=== PATIENT | female | born 1945 | race Caucasian/White ===

== ENCOUNTER 2017-10-22 06:42 | Emergency (ER) | payer MEDICARE, BC ==
[2017-10-22 06:55] VITALS: BP 180/86
--- NOTE | 2017-10-22 07:37 | EDM.PDOC ---
ED HPI GENERAL MEDICAL PROBLEM - General Chief Complaint: Bite:Animal, Insect Stated Complaint: TICK BITE Time Seen by Provider: 10/22/17 07:33 Source of Information: Reports: Patient History Limitations: Reports: No Limitations - History of Present Illness INITIAL COMMENTS - FREE TEXT/NARRATIVE: pt had a tick on the left side of her abdoman. Onset: Other (pt found the tick today but it was very imbedded. ) Duration: Hour(s): Location: Reports: Abdomen Associated Symptoms: Reports: No Other Symptoms - Related Data Allergies Allergy/AdvReac Type Severity Reaction Status Date / Time Latex, Natural Rubber Allergy Rash Verified 10/22/17 06:56 neoprene Allergy Rash Uncoded 10/22/17 06:56 Home Meds: Home Meds Furosemide [Lasix] 20 mg PO ASDIRECTED PRN 01/12/13 [History] Lovastatin 20 mg PO BEDTIME 01/12/13 [History] Omeprazole 20 mg PO DAILY 01/12/13 [History] Ondansetron [Zofran ODT] 4 mg PO Q8HR PRN 06/13/14 [History] Ascorbic Acid [Vitamin C] 500 mg PO DAILY 07/31/15 [History] Cholecalciferol (Vitamin D3) [Vitamin D3] 1,000 unit PO DAILY 06/17/16 [History] Past Medical History HEENT History: Reports: Cataract, Impaired Vision Cardiovascular History: Reports: High Cholesterol, Hypertension Respiratory History: Reports: Pneumonia, Recurrent Gastrointestinal History: Reports: Chronic Constipation, Colon Polyp, Gastritis , GERD, Hiatal Hernia, PUD, Other (See Below) Other Gastrointestinal History: barretts esophagus Genitourinary History: Reports: Acute Renal Failure, Renal Disease, UTI, Recurrent Musculoskeletal History: Reports: Arthritis, Other (See Below) Other Musculoskeletal History: burscitis-bilateral hip Endocrine/Metabolic History: Reports: Obesity/BMI 30+, Osteoporosis Hematologic History: Reports: Anemia, Folic Acid, Iron Deficiency - Infectious Disease History Infectious Disease History: Reports: Chicken Pox, Measles Other Infectious Disease History: anaplasmosis - Past Surgical History HEENT Surgical History: Reports: Oral Surgery GI Surgical History: Reports: Colonoscopy, EGD, Polypectomy, Other (See Below) Female Surgical History: Reports: Breast Biopsy Endocrine Surgical History: Reports: None Oncologic Surgical History: Reports: Biopsy of Breast Social & Family History - Family History Cardiac: Reports: Hypertension Respiratory: Reports: Other (See Below) Other Respiratory Family Hisory: pneumonia OBGYN: Reports: Musculoskeletal: Reports: Back pain, Chronic, Osteoarthritis, Osteoporosis Endocrine/Metabolic: Reports: Hypothyroidism, Multinodular Thyroid Hematologic: Reports: Anemia - Tobacco Use Smoking Status *Q: Unknown Ever Smoked - Caffeine Use Caffeine Use: Reports: None ED ROS GENERAL - Review of Systems Review Of Systems: See Below Constitutional: Reports: No Symptoms HEENT: Reports: No Symptoms Respiratory: Reports: No Symptoms Cardiovascular: Reports: No Symptoms Endocrine: Reports: No Symptoms GI/Abdominal: Reports: No Symptoms : Reports: No Symptoms Musculoskeletal: Reports: No Symptoms Skin: Reports: Other ( tick bite) ED EXAM, ANIMAL BITE - Physical Exam Exam: See Below Text/Narrative:: Pt had a tick bite on the left side of the abdoman. Exam Limited By: No Limitations General Appearance: Alert, Mild Distress Ears: Normal TMs Nose: Normal Inspection Throat/Mouth: Normal Inspection Head: Atraumatic Neck: Normal Inspection Respiratory/Chest: No Respiratory Distress Cardiovascular: Regular Rate, Rhythm GI/Abdominal: Other ( there is a tick bite on the left side of the abdoman. There is one leg left in and this was pulled out. 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
== END 2017-10-22 07:49 | disposition home or self-care (01) ==
LOC: JP.ED 06:42
DX: S30.861A Insect bite (nonvenomous) of abdominal wall, initial encounter (principal); S80.862A Insect bite (nonvenomous), left lower leg, initial encounter; I10 Essential (primary) hypertension; E78.00 Pure hypercholesterolemia, unspecified; Z79.899 Other long term (current) drug therapy; Z91.040 Latex allergy status; Z88.8 Allergy status to other drugs, medicaments and biological substances; W57.XXXA Bitten or stung by nonvenomous insect and other nonvenomous arthropods, initial encounter
CPT/HCPCS: 99282

== ENCOUNTER 2018-08-23 06:47 | Day surgery (SDC) | payer MEDICARE, BC ==
[2018-08-23] MEDS ORDERED: Propofol 200 MG/20 ML SDV ONE (07:02)
[2018-08-23] MEDS ORDERED: fentaNYL 100 MCG/2 ML SDV ONE (07:02)
[2018-08-23] MEDS ORDERED: Midazolam 1 MG/ML 2 ML SDV ONE (07:02)
[2018-08-23] MEDS ORDERED: Dextrose 5%-Lactated Ringers 1,000 ML IV SCH (07:30)
[2018-08-23 09:15] VITALS: BP 163/84
--- NOTE | 2018-08-29 13:55 | OR ---
DATE OF PROCEDURE: 08/23/2018 PREOPERATIVE DIAGNOSIS: History of Mckeon esophagus. POSTOPERATIVE DIAGNOSIS: History of Mckeon esophagus with minimal inflammation at esophagogastric junction. OPERATIVE PROCEDURE: Esophagogastroduodenoscopy with biopsies of esophagogastric junction for surveillance of Mckeon esophagus. ANESTHESIA: IV sedation. INDICATIONS FOR PROCEDURE: This is a 73-year-old presenting for followup endoscopy for surveillance of Mckeon esophagus. Presently, she is on omeprazole and has good symptom control. Plan is to proceed with an upper GI endoscopy with biopsies of esophagogastric junction and other sites as indicated. Potential risks including bleeding and perforation were discussed, and the patient wishes to proceed. DETAILS OF PROCEDURE: The patient was taken to the operating room and placed in a left lateral decubitus position. IV sedation was administered after which the upper GI endoscope was passed orally through the length of esophagus and into the stomach with retroflexion view of the fundus and thereafter through the pyloric channel and into the proximal duodenum. Findings included normal hypopharynx, larynx, and upper esophageal sphincter as well as esophageal body. At the EG junction, there was some upward extension of the gastroesophageal junction mucosal line and thin peninsular type configurations. There was minimal inflammation present in this area; however, no plaquing, stricturing, or other signs of neoplasia. The remainder of the stomach and duodenum were unremarkable. At this point, biopsies were obtained from the esophagogastric junction, sent for histologic evaluation. Minimal bleeding from the biopsy sites was seen, and the procedure was then concluded. The patient was taken to the recovery room in satisfactory condition. At this point, we will continue the present medical management, and followup plan is repeat endoscopy in 2 years unless a trend towards increased dysplasia is noted on today's biopsies. James Pink MD /[id number]
== END 2018-08-23 09:15 | disposition home or self-care (01) ==
LOC: JP.SDS 06:47
PROVIDERS: ATTEND Surgery
DX: K22.70 Barrett's esophagus without dysplasia (principal); K21.0 Gastro-esophageal reflux disease with esophagitis; E78.00 Pure hypercholesterolemia, unspecified; N18.9 Chronic kidney disease, unspecified; Z79.899 Other long term (current) drug therapy
CPT/HCPCS: 88305; J2250; J2704; J3010; J7042

== ENCOUNTER 2019-05-31 13:09 | Emergency (ER) | payer MEDICARE, BC ==
[2019-05-31] MEDS ORDERED: Sodium Chloride 0.9% 10 ML Syringe FLUSH PRN (13:19)
[2019-05-31] MEDS ORDERED: Ondansetron 4 MG/2 ML SDV IVPUSH ONE (13:20)
[2019-05-31] MEDS ORDERED: HYDROmorphone 0.5 MG/0.5 ML Syringe IVPUSH ONE (13:20)
--- NOTE | 2019-05-31 13:23 | EDM.PDOC ---
ED HPI GENERAL MEDICAL PROBLEM - General Chief Complaint: Upper Extremity Injury/Pain Stated Complaint: FELL, INJURED LEFT ARM/SHOULDER Time Seen by Provider: 05/31/19 13:22 Source of Information: Reports: Patient History Limitations: Reports: No Limitations - History of Present Illness INITIAL COMMENTS - FREE TEXT/NARRATIVE: pt arrived with pain in the left shoulder. The shoulder is definitely deformed. Pt was working on a treadmill and fell and landed onthe shoulder. pt is having severe pain in the shoulder. Onset: Today, Sudden, Other (pt fell. ) Duration: Hour(s): Location: Reports: Upper Extremity, Left Associated Symptoms: Reports: No Other Symptoms Left Shoulder Pain Score (Numeric/FACES): 10 - Related Data Allergies Allergy/AdvReac Type Severity Reaction Status Date / Time Latex, Natural Rubber Allergy Rash Verified 05/31/19 13:39 neoprene Allergy Rash Uncoded 05/31/19 13:39 Home Meds: Home Meds Furosemide [Lasix] 20 mg PO DAILY 01/12/13 [History] Lovastatin 20 mg PO BEDTIME 01/12/13 [History] Omeprazole 20 mg PO DAILY 01/12/13 [History] Ondansetron [Zofran ODT] 4 mg PO Q8HR PRN 06/13/14 [History] Ascorbic Acid [Vitamin C] 500 mg PO DAILY 07/31/15 [History] Cholecalciferol (Vitamin D3) [Vitamin D3] 2,000 unit PO DAILY 06/17/16 [History] Acetaminophen [Tylenol Extra Strength] 1,000 mg PO BID 05/31/19 [History] Ferrous Sulfate [Iron] 1 tab PO DAILY 05/31/19 [History] Past Medical History HEENT History: Reports: Cataract, Impaired Vision Cardiovascular History: Reports: High Cholesterol, Hypertension Respiratory History: Reports: Pneumonia, Recurrent Gastrointestinal History: Reports: Chronic Constipation, Colon Polyp, Gastritis , GERD, Hiatal Hernia, PUD, Other (See Below) Other Gastrointestinal History: barretts esophagus Genitourinary History: Reports: Acute Renal Failure, Renal Disease, UTI, Recurrent TUGBOAT MATE History: Reports: None Musculoskeletal History: Reports: Arthritis, Other (See Below) Other Musculoskeletal History: burscitis-bilateral hip Neurological History: Reports: None Psychiatric History: Reports: None Endocrine/Metabolic History: Reports: Obesity/BMI 30+, Osteoporosis Hematologic History: Reports: Anemia, Folic Acid, Iron Deficiency Immunologic History: Reports: None Oncologic (Cancer) History: Reports: None Dermatologic History: Reports: None - Infectious Disease History Infectious Disease History: Reports: Chicken Pox, Measles, Mumps Other Infectious Disease History: anaplasmosis - Past Surgical History Head Surgeries/Procedures: Reports: None Dermatological Surgical History: Reports: None Social & Family History - Family History Family Medical History: Noncontributory HEENT: Reports: None Cardiac: Reports: Hypertension Respiratory: Reports: Other (See Below) Other Respiratory Family Hisory: pneumonia OBGYN: Reports: Musculoskeletal: Reports: Back pain, Chronic, Osteoarthritis, Osteoporosis Endocrine/Metabolic: Reports: Hypothyroidism, Multinodular Thyroid Hematologic: Reports: Anemia - Caffeine Use Caffeine Use: Reports: None Review of Systems - Review of Systems Review Of Systems: See Below Constitutional: Reports: No Symptoms Eyes: Reports: No Symptoms Ears: Reports: No Symptoms Nose: Reports: No Symptoms Mouth/Throat: Reports: No Symptoms Respiratory: Reports: No Symptoms Cardiovascular: Reports: No Symptoms GI/Abdominal: Reports: No Symptoms Genitourinary: Reports: No Symptoms Musculoskeletal: Reports: Other (joint pain in the left shoulder. Shoulder is defintely deformed) ED EXAM, GENERAL - Physical Exam Exam: See Below Free Text/Narrative:: pt arrived with marked pain in the left shoulder. Her shoulder is deformed. She was walking on the treadmill and she lost control and she fell. Exam Limited By: No Limitations General Appearance: Alert, Anxious Ears: Normal TMs Nose: Normal Inspection Throat/Mouth: Normal Inspection Head: Atraumatic Neck: Normal Inspection Respiratory/Chest: No Respiratory Distress Cardiovascular: Regular Rate, Rhythm Extremities: Other (left shoulder is deformed. It is very painful at this time. ) Neurological: Alert, Oriented, Normal Cognition Psychiatric: Normal Affect Course - Vital Signs Last Recorded V/S: Last Vital Signs Temp 35.4 C 05/31/19 13:43 Pulse 75 05/31/19 13:43 Resp 20 05/31/19 13:43 BP 129/74 05/31/19 13:43 Pulse Ox 96 05/31/19 13:43 - Orders/Labs/Meds Meds: Medications Discontinued Medications Generic Name Dose Route Start Last Admin Trade Name Freq PRN Reason Stop Dose Admin Hydromorphone HCl 0.5 mg 05/31/19 13:20 05/31/19 13:33 Dilaudid IVPUSH 05/31/19 13:21 0.5 mg ONETIME ONE Administration Ondansetron HCl 4 mg 05/31/19 13:20 05/31/19 13:36 Zofran IVPUSH 05/31/19 13:21 4 mg ONETIME ONE Administration Propofol Confirm 05/31/19 14:11 Diprivan 20 Ml Administered 05/31/19 14:12 Dose 200 mg .ROUTE .STK-MED ONE Sodium Chloride 10 ml 05/31/19 13:19 05/31/19 13:36 Saline Flush FLUSH 10 ml ASDIRECTED PRN Administration Keep Vein Open - Re-Assessments/Exams Free Text/Narrative Re-Assessment/Exam: 05/31/19 14:16 pt had a xray which showed a anterior dislocation of the left shoulder. No fractures were seen. 05/31/19 14:17 anesthia was called and sedated the pt. With some difficulty the shoulder was relocated. Post reduction films were obtained. a imoblizer was applied. 05/31/19 14:18 Departure - Departure Time of Disposition: 14:55 Disposition: Home, Self-Care 01 Condition: Fair Clinical Impression: Anterior shoulder dislocation - Discharge Information Instructions: Shoulder Dislocation, How to Use a Shoulder Immobilizer Referrals: David Subramanian MD [Primary Care Provider] - Forms: ED Department Discharge Additional Instructions: Appointment with orthopedics Dr. Blackman at [facility] on ThursdayJune 07 at 10:00 am. Care Plan Goals: pt is post reduction of a anterior shoulder dislocation. Shoulder imoblizer, tylenol and motrin for discomfort, cool pack appt with ortho in 1 week. Sepsis Event Note - Focused Exam Date Exam was Performed: 06/02/19 Time Exam was Performed: 18:44
[2019-05-31 13:24] VITALS: BP 129/74; PULSE 75
[2019-05-31] MEDS ORDERED: Propofol 200 MG/20 ML SDV ONE (14:11)
--- NOTE | 2019-05-31 14:29 | CRLCR ---
INDICATION: Fracture versus dislocation. TECHNIQUE: Two views of the left shoulder. FINDINGS: Acute anteroinferior left shoulder dislocation. No definite fracture identified. A subtle Hill-Sachs fracture could be overlooked on plain radiography. IMPRESSION: Anteroinferior left shoulder dislocation. Dictated by Klaus Hartmann MD @ May 31 2019 2:27PM Signed by Dr. Klaus Hartmann @ May 31 2019 2:27PM
--- NOTE | 2019-05-31 15:05 | CRLCR ---
INDICATION: Post reduction. COMPARISON: 1:33 p.m. 05/31/2019 left shoulder radiographs. FINDINGS/IMPRESSION: Left shoulder, 1 view. Interval reduction of previously seen anterior dislocation of the left humeral head. Indentation along the lateral aspect of the humeral head suggests a Hill-Sachs fracture. No other evidence for fracture. Dictated by Jovanni Montesinos MD @ 05/31/2019 3:02:18 PM Dictated by: Jovanni Montesinos MD @ 05/31/2019 15:03:40 (Electronically Signed)
== END 2019-05-31 14:58 | disposition home or self-care (01) ==
LOC: JP.ED 13:09
DX: S43.005A Unspecified dislocation of left shoulder joint, initial encounter (principal); I10 Essential (primary) hypertension; E78.00 Pure hypercholesterolemia, unspecified; K21.9 Gastro-esophageal reflux disease without esophagitis; M19.90 Unspecified osteoarthritis, unspecified site; E66.9 Obesity, unspecified; Z68.34 Body mass index [BMI] 34.0-34.9, adult; Z88.8 Allergy status to other drugs, medicaments and biological substances; Z91.040 Latex allergy status; Z79.899 Other long term (current) drug therapy; W19.XXXA Unspecified fall, initial encounter
CPT/HCPCS: 23650; 73020; 73030; 96374; 96375; 99283; J1170; J2405; J2704

== ENCOUNTER 2020-12-03 07:09 | Day surgery (SDC) | payer MEDICARE, BC ==
[~2020-12-03 07:09] MED LIST: Midazolam 1 MG/ML 2 ML SDV ONE; Propofol 200 MG/20 ML SDV ONE; fentaNYL 100 MCG/2 ML SDV ONE
[2020-12-03] MEDS ORDERED: Dextrose 5%-Lactated Ringers 1,000 ML IV SCH (08:00)
[2020-12-03 09:47] VITALS: PULSE 56
[2020-12-03 10:11] VITALS: BP 105/65
--- NOTE | 2020-12-16 14:24 | OR ---
DATE OF PROCEDURE: 12/03/2020 SURGEON: James Pink MD PREOPERATIVE DIAGNOSIS: History of Mckeon esophagus. POSTOPERATIVE DIAGNOSIS: History of Mckeon esophagus. OPERATIVE PROCEDURE: Esophagogastroduodenoscopy with: 1. Biopsy of esophagogastric junction for surveillance of Mckeon esophagus. 2. Biopsies of antrum for CLOtest. ANESTHESIA: IV sedation. INDICATION FOR PROCEDURE: A 75-year-old female presenting for followup upper endoscopy. She has a history of Mckeon esophagus. Presently, she is on omeprazole 20 mg b.i.d. and had good symptom control. Plan is to proceed with upper GI endoscopy with biopsies as indicated. Potential risks including bleeding and perforation were discussed, and the patient wishes to proceed. DETAILS OF PROCEDURE: The patient was taken to the operating room and placed in a left lateral decubitus position. IV sedation was administered after which the upper GI endoscope was passed orally through the length of the esophagus into the stomach with retroflexion view of the fundus, and thereafter, through the pyloric channel and into the proximal duodenum. Findings included normal hypopharynx, larynx, upper esophageal sphincter, and esophageal body. At the EG junction, the patient did have an intact Giacomo effect and did have some upward extension in an insular-type configuration of the columnar mucosa above the upper gastric folds consistent with history of Mckeon esophagus. There was no stricturing or plaquing and minimal, if any, gross inflammation present. The remainder of the stomach was otherwise unremarkable as was the pyloric channel and proximal duodenum. Biopsies were then obtained from the antrum to establish the patient's present H. pylori status, and multiple biopsies were obtained from the esophagogastric junction and sent for histologic evaluation. Minimal bleeding from the biopsy site was seen, and the procedure was then concluded. The patient was taken to the recovery room in satisfactory condition. Plan will be to continue the present medical management assuming there is no progression of the dysplasia within the biopsies. The next endoscopy should be in roughly 2 years. James Pink MD /[id number]
== END 2020-12-03 10:15 | disposition home or self-care (01) ==
LOC: JP.SDS 07:09
PROVIDERS: ATTEND Surgery
DX: K22.70 Barrett's esophagus without dysplasia (principal); K21.9 Gastro-esophageal reflux disease without esophagitis; K22.8 Other specified diseases of esophagus; E78.5 Hyperlipidemia, unspecified; N18.30 Chronic kidney disease, stage 3 unspecified; R79.89 Other specified abnormal findings of blood chemistry
CPT/HCPCS: 43239; 87081; 88305; J2704; J3010; J7121; J2250

== ENCOUNTER 2022-04-14 06:17 | Day surgery (SDC) | payer MEDICARE, BC ==
[~2022-04-14 06:17] MED LIST changes: +Acetaminophen 500 MG Tab PO ONE; -Midazolam 1 MG/ML 2 ML SDV ONE; -Propofol 200 MG/20 ML SDV ONE; -fentaNYL 100 MCG/2 ML SDV ONE
[2022-04-14] MEDS ORDERED: Dextrose 5%-Lactated Ringers 1,000 ML IV SCH (06:30)
[2022-04-14] MEDS ORDERED: Lidocaine 1% with EPINEPHrine 1:100,000 50 ML MDV ONE (06:51)
[2022-04-14] MEDS ORDERED: ceFAZolin 2 GM in Premix Bag 1 BAG IV ONE (07:15)
[2022-04-14] MEDS ORDERED: Propofol 200 MG/20 ML SDV ONE (07:17)
[2022-04-14] MEDS ORDERED: fentaNYL 100 MCG/2 ML SDV ONE (07:17)
[2022-04-14] MEDS ORDERED: Midazolam 1 MG/ML 2 ML SDV ONE (07:18)
[2022-04-14] MEDS ORDERED: Lidocaine 0.5% 50 ML SDV ONE (07:23)
[2022-04-14] MEDS ORDERED: ceFAZolin 2 GM in Sodium Chloride 0.9% 50 ML IV ONE (07:30)
[2022-04-14] MEDS ORDERED: hydrOXYzine HCL 100 MG/2 ML SDV IM ONE (08:19)
[2022-04-14] MEDS ORDERED: traMADol 50 MG Tab PO ONE (08:52)
[2022-04-14 09:31] VITALS: BP 152/81; PULSE 72
== END 2022-04-14 09:52 | disposition home or self-care (01) ==
LOC: JP.SDS 06:17
PROVIDERS: ATTEND Surgery
DX: G56.01 Carpal tunnel syndrome, right upper limb (principal); K21.9 Gastro-esophageal reflux disease without esophagitis; N18.9 Chronic kidney disease, unspecified; Z79.899 Other long term (current) drug therapy; Z91.040 Latex allergy status
CPT/HCPCS: 64721; A9270; J0690; J2250; J2704; J3010; J3410; J3490; J7121

== ENCOUNTER 2022-10-23 05:55 | Day surgery (SDC) | payer MEDICARE, BC ==
[2022-10-23] MEDS ORDERED: Dextrose 5%-Lactated Ringers 1,000 ML IV SCH (06:30)
[2022-10-23] MEDS ORDERED: Propofol 200 MG/20 ML SDV ONE (07:30)
[2022-10-23] MEDS ORDERED: fentaNYL 50 MCG/ML SDV ONE (07:31)
[2022-10-23 10:25] VITALS: BP 152/70; PULSE 66
== END 2022-10-23 10:10 | disposition home or self-care (01) ==
LOC: JP.SDS 05:55
PROVIDERS: ATTEND Surgery
DX: K22.89 Other specified disease of esophagus (principal); K44.9 Diaphragmatic hernia without obstruction or gangrene; K21.9 Gastro-esophageal reflux disease without esophagitis; Z79.899 Other long term (current) drug therapy; Z91.040 Latex allergy status; Z87.19 Personal history of other diseases of the digestive system
CPT/HCPCS: 43239; 88305; 88313; J2704; J3010; J7121

== ENCOUNTER 2024-11-19 08:50 | Emergency (ER) | payer MEDICARE, BC ==
[2024-11-19 09:09] VITALS: BP 174/87; PULSE 87
[2024-11-19 09:28] LABS: BASOPHILS ABSOLUTE AUTO 0.03 K/uL (0.00-0.10); BASOPHILS PERCENT AUTO 0.4 % (0.1-1.3); EOSINOPHILS ABSOLUTE AUTO 0.22 K/uL (0.00-0.40); EOSINOPHILS PERCENT AUTO 3.2 % (0.0-5.4); IMMATURE GRAN PERCENT AUTO 0.3 % (0.0-0.7); LYMPHOCYTES ABSOLUTE AUTO 1.89 K/uL (0.8-3.3); LYMPHOCYTES PERCENT AUTO 27.6 % (11.4-47.7); MONOCYTES ABSOLUTE AUTO 0.59 K/uL (0.20-0.90); MONOCYTES PERCENT AUTO 8.6 % (3.3-12.6); NEUTROPHILS ABSOLUTE AUTO 4.10 K/uL (1.0-7.6); NEUTROPHILS PERCENT AUTO 59.9 % (40.0-78.1); PLATELET COUNT,PLT 267 K/uL (130-375); RED BLOOD CELL COUNT 3.74 M/uL (3.77-5.24); WHITE BLOOD CELL COUNT,WBC 6.9 K/uL (3.2-11.0)
[2024-11-19 09:30] LABS: IMMATURE GRAN ABSOLUTE AUTO 0.02 K/uL (0.00-0.23)
[2024-11-19 09:48] LABS: A/G RATIO 0.8 (1.2-2.2); ALANINE AMINOTRANSFERASE,ALT 17 U/L (12-78); ASPARTATE AMNIOTRANSFERASE,AST 18 U/L (15-37); BILIRUBIN TOTAL 0.3 mg/dL (0.2-1.0); BLOOD UREA NITROGEN,BUN 34 mg/dL (7-18); CARBON DIOXIDE,CO2 25 mmol/L (21-32); CHLORIDE,CL 104 mmol/L (100-108); CREATININE 1.7 mg/dL (0.6-1.0); EST CRCL DRUG DOSING (CG) 21.57 mL/min; ESTIMATED GFR 31 mL/min (>60); GLUCOSE RANDOM 106 mg/dL (74-106); POTASSIUM,K 4.3 mmol/L (3.6-5.2); PROTEIN TOTAL,TP 7.2 g/dL (6.4-8.2); SODIUM,NA 140 mmol/L (140-148)
== END 2024-11-19 10:24 | disposition home or self-care (01) ==
LOC: JP.ED 08:50
DX: K60.2 Anal fissure, unspecified (principal); I10 Essential (primary) hypertension; E78.00 Pure hypercholesterolemia, unspecified; Z91.040 Latex allergy status; Z88.8 Allergy status to other drugs, medicaments and biological substances; Z79.899 Other long term (current) drug therapy
CPT/HCPCS: 36415; 80053; 85025; 99283

== ENCOUNTER 2025-03-09 09:04 | Day surgery (SDC) | payer MEDICARE, BC ==
[2025-03-09] MEDS ORDERED: Propofol 200 MG/20 ML SDV ONE (09:19)
[2025-03-09 11:56] VITALS: BP 158/68; PULSE 63
[2025-03-09] MEDS: Lactated Ringers 1,000 ML IV SCH (12:18)
== END 2025-03-09 12:11 | disposition home or self-care (01) ==
LOC: JP.SDS 09:04
PROVIDERS: ATTEND Surgery
DX: K22.89 Other specified disease of esophagus (principal); K21.9 Gastro-esophageal reflux disease without esophagitis; K44.9 Diaphragmatic hernia without obstruction or gangrene; I12.9 Hypertensive chronic kidney disease with stage 1 through stage 4 chronic kidney disease, or unspecified chronic kidney disease; N18.32 Chronic kidney disease, stage 3b; D63.1 Anemia in chronic kidney disease; E78.00 Pure hypercholesterolemia, unspecified; Z88.8 Allergy status to other drugs, medicaments and biological substances; Z91.040 Latex allergy status; Z79.899 Other long term (current) drug therapy
CPT/HCPCS: 00731; 43239; J2704; J7120; 88305